=== PATIENT | male | born 1940 | race Caucasian/White ===

== ENCOUNTER 2024-01-31 13:29 | Outpatient (CLI) | payer MEDICARE ==
[~2024-01-31 13:29] MED LIST: Iopamidol 370 76% 100 ML VIAL ONE
== END 2024-01-31 13:30 | disposition home or self-care (01) ==
LOC: BICCT 13:29
PROVIDERS: ATTEND Student in an Organized Health Care Education/Training Program
DX: I65.23 Occlusion and stenosis of bilateral carotid arteries (principal); I67.89 Other cerebrovascular disease
CPT/HCPCS: 70496; 70498; 82565; Q9967